=== PATIENT | male | born 1985 | race Caucasian/White ===

== ENCOUNTER 2020-06-12 14:55 | Inpatient (IN) | payer OTHER ==
--- NOTE | 2020-06-12 15:12 | BHS.RME ---
Substance Use & Tx History - Substance Use History Alcohol Substance amount: 1 liter vodka Frequency of use: Daily Substance route: Oral Date of Last Use: 06/12/20 (started age 31) Marijuana/Hashish Substance amount: 1 blunt Frequency of use: Daily Substance route: Smoking Date of Last Use: 06/12/20 (started age 12) Nicotine Substance amount: 1 pack Frequency of use: Daily Substance route: Smoking Date of Last Use: 06/12/20 (started age 16) Physical/Psych/Mental Status - Behavior General Behavior: Increased activity (restlessness, agitation) Eye Contact: Normal - Cooperativeness Cooperativeness: Cooperative, Hostile - Thinking Thought Processes: Tight, Logical, Goal Directed - Physical Health Problems Is patient presently having any pain?: No Does patient presently have any injuries (include location): No Does patient currently have a fever: No Is patient : No CIWA Nausea/Vomitin-Mild Nausea/No Vomiting Muscle Tremors: 2 Anxiety: 2 Agitation: 2 Paroxysmal Sweats: 2 Orientation: 1-Uncertain about Date Tacttile Disturbances: 0-None Auditory Disturbances: 0-None Visual Disturbances: 0-None Headache: 0-None Present (patient is intoxicated not yet in withdrawals) CIWA-Ar Total Score: 10
--- NOTE | 2020-06-12 15:38 | HP ---
CIWA Score Nausea/Vomitin-Mild Nausea/No Vomiting Muscle Tremors: 2 Anxiety: 2 Agitation: 2 Paroxysmal Sweats: 2 Orientation: 1-Uncertain about Date Tacttile Disturbances: 0-None Auditory Disturbances: 0-None Visual Disturbances: 0-None Headache: 0-None Present (patient is intoxicated not yet in withdrawals) CIWA-Ar Total Score: 10 - Admission Criteria OASAS Guidelines: Admission for Medically Managed Detox: Requires at least one of the followin. CIWA greater than 12 2. Seizures within the past 24 hours 3. Delirium tremens within the past 24 hours 4. Hallucinations within the past 24 hours 5. Acute intervention needed for co occurring medical disorder 6. Acute intervention needed for co occurring psychiatric disorder 7. Severe withdrawal that cannot be handled at a lower level of care (continued vomiting, continued diarrhea, abnormal vital signs) requiring intravenous medication and/or fluids 8. Admission ROS S - HPI Chief Complaint: I want to stop drinking. Allergies/Adverse Reactions: Allergies Allergy/AdvReac Type Severity Reaction Status Date / Time No Known Allergies Allergy Verified 06/12/20 15:40 History of Present Illness: 34 year old male with history of alcohol dependence with withdrawal. cannabis use disorder and nicotine dependence. - Substance Use History Alcohol Substance amount: 1 liter vodka Frequency of use: Daily Substance route: Oral Date of Last Use: 06/12/20 (started age 31) Patient admits to blackouts and last one 1 year ago, and also endorses the need for an eye brim curler Marijuana/Hashish Substance amount: 1 blunt Frequency of use: Daily Substance route: Smoking Date of Last Use: 06/12/20 (started age 12) Nicotine Substance amount: 1 pack Frequency of use: Daily Substance route: Smoking Date of Last Use: 06/12/20 (started age 16) Exam Limitations: No Limitations - Ebola screening Have you traveled outside of the country in the last 21 days: No Have you had contact with anyone from an Ebola affected area: No Have you been sick,other than usual withdrawal symptoms: No Do you have a fever: No - Review of Systems Constitutional: Chills, Diaphoresis, Unintentional Wgt. Loss EENT: reports: No Symptoms Reported Respiratory: reports: No Symptoms reported Cardiac: reports: No Symptoms Reported GI: reports: No Symptoms Reported : reports: No Symptoms Reported Musculoskeletal: reports: No Symptoms Reported Integumentary: reports: No Symptoms Reported Neuro: reports: No Symptoms reported Endocrine: reports: No Symptoms Reported Hematology: reports: No Symptoms Reported Psychiatric: reports: Judgement Intact, Mood/Affect Appropiate, Orientated x3, Agitated, Anxious, Depressed Other Systems: Reviewed and Negative Patient History - Patient Medical History Hx Anemia: No Hx Asthma: No Hx Chronic Obstructive Pulmonary Disease (COPD): No Hx Cancer: No Hx Cardiac Disorders: No Hx Congestive Heart Failure: No Hx Hypertension: No Hx Hypercholesterolemia: No Hx Pacemaker: No HX Cerebrovascular Accident: No Hx Seizures: No Hx Dementia: No Hx Diabetes: Yes Hx Gastrointestinal Disorders: No Hx Liver Disease: No Hx Genitourinary Disorders: No Hx Sexually Transmitted Disorders: No Hx Renal Disease (ESRD): No Hx Thyroid Disease: No Hx Human Immunodeficiency Virus (HIV): No Hx Hepatitis C: No Hx Depression: Yes Hx Suicide Attempt: No Hx Bipolar Disorder: No Hx Schizophrenia: No Other Medical History: anxiety - Patient Surgical History Past Surgical History: No - PPD History Previous Implant?: Yes Documented Results: Negative w/o proof Implanted On Prior [facility] Admission?: No PPD to be Administered?: Yes - Smoking Cessation Smoking history: Current every day smoker Have you smoked in the past 12 months: Yes Aproximately how many cigarettes per day: 20 Hx Chewing Tobacco Use: No Initiated information on smoking cessation: Yes 'Breaking Loose' booklet given: 06/12/20 - Substances abused Alcohol Substance route: Oral Frequency: Daily Amount used: 1 liter of vodka Age of first use: 31 Date of last use: 06/12/20 Marijuana/Hashish Substance route: Smoking Frequency: Daily Amount used: 1 blunt Age of first use: 12 Date of last use: 06/12/20 Admission Physical Exam BHS - Physical General Appearance: Yes: Moderate Distress, Intoxicated, Thin, Tremorous, Irritable, Sweating, Anxious HEENTM: Yes: EOMI, Hearing grossly Normal, Normal ENT Inspection, Normocephalic, Normal Voice, TANNER, Pharynx Normal, Tm's normal Respiratory: Yes: Chest Non-Tender, Lungs Clear, Normal Breath Sounds, No Respiratory Distress, No Accessory Muscle Use Neck: Yes: No masses,lesions,Nodules, Supple, Trachea in good position Breast: Yes: Within Normal Limits Cardiology: Yes: Regular Rhythm, S1, S2, Tachycardia Abdominal: Yes: Normal Bowel Sounds, Non Tender, Flat, Soft Genitourinary: Yes: Within Normal Limits Back: Yes: Normal Inspection Musculoskeletal: Yes: full range of Motion, Gait Steady, Pelvis Stable Extremities: Yes: Normal Capillary Refill, Normal Inspection, Normal Range of Motion, Non-Tender, Tremors 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: 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: 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 intact, Fully Oriented, Alert, Motor Strength 5/5, Normal Mood/Affect, Normal Response Integumentary: Yes: Normal Color, Dry, Warm Lymphatic: Yes: Within Normal Limits - Diagnostic (1) Alcohol dependence with intoxication Current Visit: Yes Status: Acute (2) Alcohol dependence with withdrawal Current Visit: Yes Status: Acute (3) Diabetes Current Visit: Yes Status: Acute (4) Anxiety Current Visit: Yes Status: Acute Cleared for Admission S - Detox or Rehab [facility] Level of Care: Medically Managed Detox Regimen/Protocol: Ativan Claeared for Rehab Admission: No Screened but not Admitted - Documentation of Visit Screened but not Admitted: No Breathalyzer - Breathalyzer Breathalyzer: 0.099 Vital Signs - Vital Signs Vital signs refused: No Temperature: 97.7 F Pulse Rate: 94 Respiratory Rate: 12 Blood Pressure: 116/69 BP Location: Right Arm Blood Pressure position: Sitting - Height Height: 5 ft 7 in - Weight Weight: 153 lb Weight measurement method: Standing scale - BMI Body Mass Index (BMI): 23.9 - Bowel Function Bowel Movement: No Urine Drug Screen - Results Drug screen NEGATIVE: No Urine drug screen results: THC-Marijuana, BZO-Benzodiazepines Inpatient Rehab Admission - Rehab Decision to Admit Inpatient rehab admission?: No
[2020-06-12] MEDS ORDERED: MAG HYDROX/AL HYDROX/SIMETH 30 ML UNIT-DOSE CUP ONE (15:40)
[2020-06-12] MEDS ORDERED: MAG HYDROX/AL HYDROX/SIMETH 30 ML UNIT-DOSE CUP PO ONE (15:40)
[2020-06-12 15:47] VITALS: BMI 23.9
[2020-06-12] MEDS ORDERED: BISMUTH SUBSALICYLATE 524 MG/30 ML UD PO PRN (15:47)
[2020-06-12] MEDS ORDERED: IBUPROFEN 400 MG TABLET (FP) PO PRN (15:47)
[2020-06-12] MEDS ORDERED: ACETAMINOPHEN 325 MG TABLET (FP) PO PRN ×2 (15:47)
[2020-06-12] MEDS ORDERED: LORazepam 1 MG TABLET PO PRN (15:47)
[2020-06-12] MEDS ORDERED: METHOCARBAMOL 500 MG TABLET PO PRN (15:47)
[2020-06-12] MEDS ORDERED: MAGNESIUM CITRATE 300 ML BOTTLE PO PRN (15:47)
[2020-06-12] MEDS ORDERED: MENTHOL/PHENOL 1 EACH UD MM PRN (15:47)
[2020-06-12] MEDS ORDERED: ONDANSETRON *ODT* 4 MG TABLET SL PRN (15:47)
[2020-06-12] MEDS ORDERED: MAGNESIUM HYDROX 2400MG/30ML ORAL SUSPENSION 30 ML CUP PO PRN (15:47)
[2020-06-12] MEDS ORDERED: MAG HYDROX/AL HYDROX/SIMETH 30 ML UNIT-DOSE CUP PO PRN (15:47)
[2020-06-12] MEDS: PRENATAL VITAMINS W/ FOLIC ACID TABLET (FP) PO SCH (18:00)
[2020-06-12] MEDS: LORazepam 2 MG TABLET PO SCH ×2 (18:00→22:50)
[2020-06-12] MEDS: NICOTINE 7 MG/24 HOURS TOPICAL PATCH TD SCH (18:00)
[2020-06-12] MEDS: hydrOXYzine PAMOATE 25 MG CAPSULE (FP) PO SCH ×2 (18:00→22:49)
[2020-06-12] MEDS: MELATONIN 5 MG TABLETS PO SCH (22:49)
[2020-06-12] MEDS: THIAMINE HCL 100 MG TABLET (FP) PO SCH (22:50)
[2020-06-13] MEDS: LORazepam 2 MG TABLET PO SCH ×4 (06:15→23:11)
[2020-06-13] MEDS: hydrOXYzine PAMOATE 25 MG CAPSULE (FP) PO SCH ×6 (06:16→23:10)
[2020-06-13] MEDS: NICOTINE 7 MG/24 HOURS TOPICAL PATCH TD SCH (10:16)
[2020-06-13] MEDS: PRENATAL VITAMINS W/ FOLIC ACID TABLET (FP) PO SCH (10:16)
[2020-06-13] MEDS: NICOTINE POLACRILEX 2 MG GUM BUC PRN ×2 (10:17→12:36)
[2020-06-13 10:26] LABS: HEMATOCRIT 41.7 % (35.4-49); HEMOGLOBIN 13.7 GM/dL (11.7-16.9); MCH 30.4 pg (25.7-33.7); MEAN CELL VOLUME 92.1 fl (80-96); MEAN PLT VOLUME 7.5 fl (7.5-11.1); PLATELET COUNT 238 K/MM3 (134-434); RBC 4.52 M/mm3 (4.00-5.60); RDW 13.3 % (11.9-15.9); WHITE BLOOD COUNT 7.5 K/mm3 (4.0-10.0)
--- NOTE | 2020-06-13 10:26 | EKG ---
Test Reason : Blood Pressure : / mmHG Vent. Rate : 090 BPM Atrial Rate : 090 BPM P-R Int : 148 ms QRS Dur : 090 ms QT Int : 370 ms P-R-T Axes : 050 008 043 degrees QTc Int : 452 ms NORMAL SINUS RHYTHM NON-SPECIFIC INTRA-VENTRICULAR CONDUCTION DELAY NO PREVIOUS ECGS AVAILABLE Confirmed by LOAN MONTOYA MD ([id number]) on 06/13/2020 10:26:11 AM Referred By: Confirmed By:LOAN MONTOYA MD
[2020-06-13 10:39] LABS: ALBUMIN 3.4 g/dl (3.4-5.0); BILIRUBIN,TOTAL 0.2 mg/dL (0.2-1); BLOOD UREA NITROGEN 9.2 mg/dL (7-18); CALCIUM 8.8 mg/dL (8.5-10.1); CREATININE 0.8 mg/dL (0.55-1.3); POTASSIUM 4.6 mmol/L (3.5-5.1); TOT PROT 6.3 g/dl (6.4-8.2)
[2020-06-13] MEDS ORDERED: Insulin (LOG) Aspart 100 UNITS/ML VIAL SQ ONE (11:27)
[2020-06-13] MEDS ORDERED: INSULIN SLIDING SCALE (NOVOLOG) 1 VIAL SQ ONE (11:37)
--- NOTE | 2020-06-13 11:52 | CONSULT ---
[facility] Psychiatric Consult - Data Date of interview: 06/13/20 Admission source: [facility] Identifying data: Patient is a 34 year old single male, father of one, unemployed, homeless, and is supported with [facility]. This is patient's first admission to detox at [facility]. Patient admitted to for alcohol and marijuana dependence. Substance Abuse History: Smoking Cessation. Smoking history: Current every day smoker. Have you smoked in the past 12 months: Yes. Aproximately how many cigarettes per day: 20. Hx Chewing Tobacco Use: No. Initiated information on smoking cessation: Yes. 'Breaking Loose' booklet given: 06/12/20. - Substances abused. Alcohol. Substance route: Oral. Frequency: Daily. Amount used: 1 liter of vodka. Age of first use: 31. Date of last use: 06/12/20. Marijuana/Hashish. Substance route: Smoking. Frequency: Daily. Amount used: 1 blunt. Age of first use: 12. Date of last use: 06/12/20 Medical History: diabetes. Psychiatric History: Interview conducted bedside. Patient reports history of one psychiatric hospitalization in 2019 in [place] due to suicidal ideation. Mr. López is unable to recall medications prescribed. Reports history of one suicide attempt as a teenager via cutting. Patient presents with a vague psychiatric history. Mr. López denies current outpatient psychiatric care. At present patient presents as moderately sedated but is reporting difficulty sleeping. Physical/Sexual Abuse/Trauma History: denies. Mental Status Exam - Mental Status Exam Alert and Oriented to: Time, Place, Person Cognitive Function: Good Patient Appearance: Well Groomed Mood: Withdrawn Affect: Mood Congruent Patient Behavior: Sedated (moderately sedated.), Fatigued Speech Pattern: Slurred (Patient moderately sedated.) Voice Loudness: Mildly Soft/Quiet Thought Process: Goal Oriented Thought Disorder: Not Present Hallucinations: Denies Suicidal Ideation: Denies Homicidal Ideation: Denies Insight/Judgement: Poor Sleep: Poorly Appetite: Fair Muscle strength/Tone: Normal Gait/Station: Other (Not observed.) Psychiatric Findings - Problem List ([place] 1, 2,3) (1) Marijuana dependence Current Visit: Yes Status: Acute (2) Alcohol dependence with withdrawal Current Visit: Yes Status: Acute (3) Substance induced mood disorder Current Visit: Yes Status: Acute (4) Substance-induced sleep disorder Current Visit: Yes Status: Acute - Initial Treatment Plan Initial Treatment Plan: Psychoeducation provided. Detoxification in progress. Will order Belsomra 10mg HS PRN. Benefits and side effects discussed. Verbal consent given.
--- NOTE | 2020-06-13 12:54 | PN ---
S CIWA - CIWA Score Nausea/Vomitin-No Nausea/No Vomiting Muscle Tremors: None Anxiety: 2 Agitation: 2 Paroxysmal Sweats: 2 Orientation: 0-Oriented Tacttile Disturbances: 0-None Auditory Disturbances: 0-None Visual Disturbances: 0-None Headache: 2-Mild CIWA-Ar Total Score: 8 S Progress Note (SOAP) Subjective: c/o anxiety, sweats, and irritability. Objective: 06/13/20 12:45 Vital Signs 06/13/20 05:52 Temperature 98.0 F Pulse Rate 76 Respiratory 18 Rate Blood Pressure 113/70 O2 Sat by Pulse 99 Oximetry (%) Laboratory Last Values WBC 7.5 K/mm3 (4.0-10.0) 06/13/20 07:35 RBC 4.52 M/mm3 (4.00-5.60) 06/13/20 07:35 Hgb 13.7 GM/dL (11.7-16.9) 06/13/20 07:35 Hct 41.7 % (35.4-49) 06/13/20 07:35 MCV 92.1 fl (80-96) 06/13/20 07:35 MCH 30.4 pg (25.7-33.7) 06/13/20 07:35 MCHC 33.0 g/dl (32.0-35.9) 06/13/20 07:35 RDW 13.3 % (11.9-15.9) 06/13/20 07:35 Plt Count 238 K/MM3 (134-434) 06/13/20 07:35 MPV 7.5 fl (7.5-11.1) 06/13/20 07:35 Sodium 132 mmol/L (136-145) L 06/13/20 07:35 Potassium 4.6 mmol/L (3.5-5.1) 06/13/20 07:35 Chloride 96 mmol/L (98-107) L 06/13/20 07:35 Carbon Dioxide 30 mmol/L (21-32) 06/13/20 07:35 Anion Gap 6 MMOL/L (8-16) L 06/13/20 07:35 BUN 9.2 mg/dL (7-18) 06/13/20 07:35 Creatinine 0.8 mg/dL (0.55-1.3) 06/13/20 07:35 Est GFR (CKD-EPI)AfAm 134.14 06/13/20 07:35 Est GFR (CKD-EPI)NonAf 115.74 06/13/20 07:35 POC Glucometer > 600 UNITS (80-120) 06/13/20 11:15 Random Glucose 509 mg/dL (74-106) H* 06/13/20 07:35 Calcium 8.8 mg/dL (8.5-10.1) 06/13/20 07:35 Total Bilirubin 0.2 mg/dL (0.2-1) 06/13/20 07:35 AST 16 U/L (15-37) 06/13/20 07:35 ALT 23 U/L (13-61) 06/13/20 07:35 Alkaline Phosphatase 100 U/L (45-117) 06/13/20 07:35 Total Protein 6.3 g/dl (6.4-8.2) L 06/13/20 07:35 Albumin 3.4 g/dl (3.4-5.0) 06/13/20 07:35 Labs noted with random glucose of 509mg/dl and BGM of >600. Assessment: 06/13/20 12:46 AOX3, in no acute respiratory distress. Full ROM, ambulating in the unit. Withdrawal symptoms. Hyperglycemia, pt denies any symptoms. 06/13/20 12:48 Plan: continue detox. Give novolog 15units SQ stat and start Novolog insulin sliding scale ACHS. Monitor BGM ACHS.
[2020-06-13] MEDS: INSULIN SLIDING SCALE (NOVOLOG) 1 VIAL SQ SCH ×2 (17:00→21:40)
[2020-06-13] MEDS ORDERED: SUVOREXANT 10 MG TABLET PO PRN (22:00)
[2020-06-13] MEDS: MELATONIN 5 MG TABLETS PO SCH (23:10)
[2020-06-13] MEDS: THIAMINE HCL 100 MG TABLET (FP) PO SCH (23:10)
[2020-06-14] MEDS ORDERED: LORazepam 1 MG TABLET PO SCH (05:00)
[2020-06-14] MEDS: hydrOXYzine PAMOATE 25 MG CAPSULE (FP) PO SCH (05:43)
[2020-06-14] MEDS: NICOTINE POLACRILEX 2 MG GUM BUC PRN (06:34)
[2020-06-14] MEDS: INSULIN SLIDING SCALE (NOVOLOG) 1 VIAL SQ SCH (06:41)
[2020-06-14] MEDS ORDERED: MASKS NR ONE (06:58)
[2020-06-14 07:19] VITALS: BP 116/77; PULSE 100; TEMP 98.2
--- NOTE | 2020-06-14 13:03 | DS ---
[facility] Detox Discharge Summary Admission Date: 06/12/20 Discharge Date: 06/14/20 (Pt left AMA) - History Present History: Alcohol Dependence Additional Comments: Pt left AMA. Pt did not complete the detox protocol. Pt states, "I have to leave now, this ain't helping me". An attempt to let pt stay and complete the detox protocol failed. Pt is verbally abusive to the staff since admission. Pt's blood glucose is high and is not compliant with treatment. Pt is encouraged to follow- up with an outpatient CD program and also to follow-up with his pmd but was adamant and states, " get the "F" out of my face, I "F" don't care". Pt is AOX3, in no acute respiratory distress, Full ROM, and ambulatory. Pertinent Past History: h/o DM, alcohol, and cannabis use disorder. - Physical Exam Results Vital Signs: Vital Signs Temperature 98.2 F 06/14/20 07:18 Pulse Rate 100 H 06/14/20 07:18 Respiratory Rate 18 06/14/20 07:18 Blood Pressure 116/77 06/14/20 07:18 O2 Sat by Pulse Oximetry (%) 98 06/14/20 07:18 Vital Signs 06/14/20 07:18 Temperature 98.2 F Pulse Rate 100 H Respiratory 18 Rate Blood Pressure 116/77 O2 Sat by Pulse 98 Oximetry (%) Laboratory Last Values WBC 7.5 K/mm3 (4.0-10.0) 06/13/20 07:35 RBC 4.52 M/mm3 (4.00-5.60) 06/13/20 07:35 Hgb 13.7 GM/dL (11.7-16.9) 06/13/20 07:35 Hct 41.7 % (35.4-49) 06/13/20 07:35 MCV 92.1 fl (80-96) 06/13/20 07:35 MCH 30.4 pg (25.7-33.7) 06/13/20 07:35 MCHC 33.0 g/dl (32.0-35.9) 06/13/20 07:35 RDW 13.3 % (11.9-15.9) 06/13/20 07:35 Plt Count 238 K/MM3 (134-434) 06/13/20 07:35 MPV 7.5 fl (7.5-11.1) 06/13/20 07:35 Sodium 132 mmol/L (136-145) L 06/13/20 07:35 Potassium 4.6 mmol/L (3.5-5.1) 06/13/20 07:35 Chloride 96 mmol/L (98-107) L 06/13/20 07:35 Carbon Dioxide 30 mmol/L (21-32) 06/13/20 07:35 Anion Gap 6 MMOL/L (8-16) L 06/13/20 07:35 BUN 9.2 mg/dL (7-18) 06/13/20 07:35 Creatinine 0.8 mg/dL (0.55-1.3) 06/13/20 07:35 Est GFR (CKD-EPI)AfAm 134.14 06/13/20 07:35 Est GFR (CKD-EPI)NonAf 115.74 06/13/20 07:35 POC Glucometer 568 UNITS (80-120) 06/14/20 05:42 Random Glucose 509 mg/dL (74-106) H* 06/13/20 07:35 Calcium 8.8 mg/dL (8.5-10.1) 06/13/20 07:35 Total Bilirubin 0.2 mg/dL (0.2-1) 06/13/20 07:35 AST 16 U/L (15-37) 06/13/20 07:35 ALT 23 U/L (13-61) 06/13/20 07:35 Alkaline Phosphatase 100 U/L (45-117) 06/13/20 07:35 Total Protein 6.3 g/dl (6.4-8.2) L 06/13/20 07:35 Albumin 3.4 g/dl (3.4-5.0) 06/13/20 07:35 Syphilis Serology Non-reactive (NONREACTIVE) 06/13/20 07:35 COVID-19 (NOA) Not detected (Not Detected) 06/12/20 15:10 Labs noted. Pertinent Admission Physical Exam Findings: withdrawal symptoms. - Treatment Hospital Course: Detox Protocol Followed - Medication Discharge Medications: Ambulatory Orders Insulin (Novolog) [Novolog] 30 units SQ BID 06/12/20 - Diagnosis (1) Alcohol dependence with withdrawal Status: Acute (2) Diabetes Status: Chronic (3) Marijuana dependence Status: Chronic - AMA Did Patient Leave Against Medical Advice: Yes
[2020-06-15] MEDS ORDERED: LORazepam 0.5 MG TABLET PO PRN
[2020-06-15] MEDS ORDERED: LORazepam 0.5 MG TABLET PO SCH (05:00)
[2020-06-16] MEDS ORDERED: LORazepam 0.5 MG TABLET PO ONE (05:00)
== END 2020-06-14 09:10 | disposition left against medical advice (07) | DRG 770 ==
LOC: YASAS 14:55 → Y3N 16:53
PROVIDERS: ADMIT Allergy & Immunology; ATTEND Allergy & Immunology
PROC: HZ2ZZZZ Detoxification Services for Substance Abuse Treatment (ICD-10-PCS; principal; 2020-06-12)
DX: F10.230 Alcohol dependence with withdrawal, uncomplicated (principal); F10.220 Alcohol dependence with intoxication, uncomplicated; F12.20 Cannabis dependence, uncomplicated; F17.210 Nicotine dependence, cigarettes, uncomplicated; F19.282 Other psychoactive substance dependence with psychoactive substance-induced sleep disorder; F19.24 Other psychoactive substance dependence with psychoactive substance-induced mood disorder; F32.9 Major depressive disorder, single episode, unspecified; E11.65 Type 2 diabetes mellitus with hyperglycemia; Z79.4 Long term (current) use of insulin; Z56.0 Unemployment, unspecified; Z59.0 Homelessness
CPT/HCPCS: 36415; 80053; 82962; 85027; 86780; 93005; 93010; U0003

== ENCOUNTER 2023-05-05 12:40 | Inpatient (IN) | payer OTHER ==
[2023-05-05 13:52] VITALS: BMI 22.5
[2023-05-05] MEDS ORDERED: ACETAMINOPHEN 325 MG TABLET (FP) PO PRN (14:36)
[2023-05-05] MEDS ORDERED: METHOCARBAMOL 500 MG TABLET PO PRN (14:36)
[2023-05-05] MEDS ORDERED: ONDANSETRON *ODT* 4 MG TABLET SL PRN (14:36)
[2023-05-05] MEDS ORDERED: MAG HYDROX/AL HYDROX/SIMETH 30 ML UNIT-DOSE CUP PO PRN (14:36)
[2023-05-05] MEDS ORDERED: BISMUTH SUBSALICYLATE 524 MG/30 ML PO PRN (14:36)
[2023-05-05] MEDS ORDERED: BENZONATATE 200 MG CAPSULE PO PRN (14:36)
[2023-05-05] MEDS ORDERED: NALOXONE HCL (KLOXXADO) 8 MG SPRAY NS PRN (14:36)
[2023-05-05] MEDS ORDERED: POLYETHYLENE GLYCOL (HEALTHYLAX) 3350 17 GM PACKET PO PRN (14:36)
[2023-05-05] MEDS ORDERED: DICYCLOMINE HCL 10 MG CAPSULE PO PRN (14:36)
[2023-05-05] MEDS ORDERED: IBUPROFEN 600 MG TABLET (FP) PO PRN (14:36)
[2023-05-05] MEDS ORDERED: IBUPROFEN 400 MG TABLET (FP) PO PRN (14:36)
[2023-05-05] MEDS ORDERED: NALOXONE HCL 0.4 MG/ML VIAL IM PRN (14:36)
[2023-05-05] MEDS ORDERED: MAGNESIUM HYDROX 2400MG/30ML ORAL SUSPENSION 30 ML CUP PO PRN (14:36)
[2023-05-05] MEDS ORDERED: guaiFENesin 600 MG TABLET.ER (FP) PO PRN (14:36)
[2023-05-05] MEDS ORDERED: hydrOXYzine PAMOATE 25 MG CAPSULE (FP) PO PRN (14:36)
[2023-05-05] MEDS ORDERED: BENZOCAINE/MENTHOL (CHLORASEPTIC ) LOZENGE MM PRN (14:36)
[2023-05-05] MEDS ORDERED: LOPERAMIDE HCL 2 MG CAPSULE PO PRN (14:36)
[2023-05-05] MEDS: NICOTINE 7 MG/24 HOURS TOPICAL PATCH TD SCH (16:05)
[2023-05-05] MEDS ORDERED: INSULIN (NOVOLOG) ASPART 100 UNITS/ML 10ML VIAL SQ SCH (16:30)
[2023-05-05] MEDS: PRENATAL VITAMINS W/ FOLIC ACID TABLET (FP) PO SCH (16:45)
[2023-05-05] MEDS ORDERED: NICOTINE 7 MG/24 HOURS TOPICAL PATCH TD ONE (16:52)
[2023-05-05] MEDS ORDERED: PRENATAL VITAMINS W/ FOLIC ACID TABLET (FP) PO ONE (16:52)
[2023-05-05] MEDS ORDERED: INSULIN (NOVOLOG) ASPART 100 UNITS/ML 10ML VIAL ONE (17:02)
[2023-05-05 17:24] VITALS: TEMP 97.8
[2023-05-05] MEDS: chlordiazePOXIDE HCL 25 MG CAPSULE PO SCH ×2 (18:00→23:02)
[2023-05-05] MEDS: chlordiazePOXIDE HCL 25 MG CAPSULE PO PRN (18:23)
[2023-05-05] MEDS ORDERED: THIAMINE HCL 100 MG TABLET (FP) PO SCH (22:00)
[2023-05-05] MEDS ORDERED: MELATONIN 5 MG TABLETS PO SCH (22:00)
[2023-05-06] MEDS: chlordiazePOXIDE HCL 25 MG CAPSULE PO SCH ×2 (05:55→10:13)
[2023-05-06 06:20] VITALS: BP 121/74; PULSE 74; RESP 16
[2023-05-06] MEDS: INSULIN SLIDING SCALE (NOVOLOG) 1 VIAL SQ SCH ×2 (07:49→11:45)
[2023-05-06] MEDS: PRENATAL VITAMINS W/ FOLIC ACID TABLET (FP) PO SCH (10:13)
[2023-05-06] MEDS: NICOTINE 7 MG/24 HOURS TOPICAL PATCH TD SCH (10:15)
[2023-05-06 11:02] LABS: HEMATOCRIT 46.6 % (35.4-49); HEMOGLOBIN 15.2 GM/dL (11.7-16.9); MCH 30.2 pg (25.7-33.7); MCHC 32.6 g/dl (32.0-35.9); MEAN CELL VOLUME 92.7 fl (80-96); MEAN PLT VOLUME 8.2 fl (7.5-11.1); PLATELET COUNT 300 10^3/uL (134-434); RBC 5.03 M/mm3 (4.00-5.60); RDW 13.1 % (11.9-15.9); WHITE BLOOD COUNT 5.6 K/mm3 (4.0-10.0)
[2023-05-06 11:04] LABS: CHLORIDE 101 mmol/L (98-107); POTASSIUM 4.3 mmol/L (3.5-5.1); SODIUM 139 mmol/L (136-145)
[2023-05-06 11:52] LABS: ALBUMIN 3.6 g/dl (3.4-5.0); BLOOD UREA NITROGEN 13.5 mg/dL (7-18); CALCIUM 9.6 mg/dL (8.5-10.1); CO2 30 mmol/L (21-32)
[2023-05-06 11:54] LABS: CREATININE 0.8 mg/dL (0.55-1.3); SGOT/AST 21 U/L (15-37); SGPT/ALT 46 U/L (13-61)
[2023-05-06] MEDS ORDERED: INSULIN (NOVOLOG) ASPART 100 UNITS/ML 10ML VIAL ONE (11:54)
[2023-05-06 11:56] LABS: BILIRUBIN,TOTAL 0.2 mg/dL (0.2-1); TOT PROT 6.9 g/dl (6.4-8.2)
[2023-05-06 11:58] LABS: ALK PHOS 121 U/L (45-117); ANION GAP 8 MMOL/L (8-16); GLUCOSE,RANDOM 445 mg/dL (74-106)
[2023-05-06] MEDS ORDERED: INSULIN (NOVOLOG) ASPART 100 UNITS/ML 10ML VIAL SQ ONE (13:30)
[2023-05-06] MEDS: chlordiazePOXIDE HCL 25 MG CAPSULE PO PRN (14:11)
[2023-05-06] MEDS ORDERED: INSULIN (LEVEMIR) 100 UNITS/ML UNITS SQ SCH (22:00)
[2023-05-07] MEDS ORDERED: chlordiazePOXIDE HCL 25 MG CAPSULE PO SCH (05:00)
[2023-05-08] MEDS ORDERED: chlordiazePOXIDE HCL 10 MG CAPSULE PO PRN
[2023-05-08] MEDS ORDERED: chlordiazePOXIDE HCL 10 MG CAPSULE PO SCH (05:00)
[2023-05-09] MEDS ORDERED: chlordiazePOXIDE HCL 10 MG CAPSULE PO SCH (05:00)
[2023-05-10] MEDS ORDERED: chlordiazePOXIDE HCL 10 MG CAPSULE PO ONE (05:00)
== END 2023-05-06 17:30 | disposition left against medical advice (07) | DRG 770 ==
LOC: YASAS 12:40 → Y6N 16:56
PROVIDERS: ADMIT Allergy & Immunology; ATTEND Surgery
PROC: HZ2ZZZZ Detoxification Services for Substance Abuse Treatment (ICD-10-PCS; principal; 2023-05-05)
DX: F10.230 Alcohol dependence with withdrawal, uncomplicated (principal); F12.20 Cannabis dependence, uncomplicated; F17.210 Nicotine dependence, cigarettes, uncomplicated; F20.9 Schizophrenia, unspecified; F19.282 Other psychoactive substance dependence with psychoactive substance-induced sleep disorder; F19.24 Other psychoactive substance dependence with psychoactive substance-induced mood disorder; F41.9 Anxiety disorder, unspecified; E11.9 Type 2 diabetes mellitus without complications; Z79.4 Long term (current) use of insulin; Z59.02 Unsheltered homelessness
CPT/HCPCS: 36415; 80053; 82962; 85027; 86780; 87635; 87811; 93005; 93010

== ENCOUNTER 2024-09-21 16:07 | Inpatient (IN) | payer OTHER ==
[2024-09-21 16:30] VITALS: RESP 18; BMI 25.8
[2024-09-21] MEDS ORDERED: NICOTINE 7 MG/24 HOURS TOPICAL PATCH TD ONE (17:57)
[2024-09-21 18:03] LABS: VENOUS BASE EXCESS 3.6 mmol/L (-2-2); VENOUS O2 SATURATION 19.2 % (70-80); VENOUS PCO2 60.2 mmHg (38-52); VENOUS PH 7.335 (7.310-7.410)
[2024-09-21] MEDS: NICOTINE 7 MG/24 HOURS TOPICAL PATCH TD ONE (18:08)
[2024-09-21] MEDS: SODIUM CHLORIDE 0.9% 500 ML INFUS.BAG IV ONE ×2 (18:08→19:11)
[2024-09-21 18:13] LABS: BASO % 0.4 % (0-2.0); HEMATOCRIT 42.6 % (35.4-49); HEMOGLOBIN 14.2 GM/dL (11.7-16.9); MCH 29.9 pg (25.7-33.7); MCHC 33.4 g/dl (32.0-35.9); MEAN CELL VOLUME 89.5 fl (80-96); MEAN PLT VOLUME 7.9 fl (7.5-11.1); MONO % 5.3 % (3.8-10.2); NEUT % 82.3 % (42.8-82.8); PLATELET COUNT 225 10^3/uL (134-434); RBC 4.76 M/mm3 (4.00-5.60); RDW 13.8 % (11.9-15.9)
[2024-09-21 18:16] LABS: PH,URINE 7.5 (5.0-8.0); URINE APPEARANCE CLEAR; URINE BILIRUBIN NEGATIVE (NEGATIVE); URINE COLOR YELLOW; URINE GLUCOSE (UA) 3+ (NEGATIVE); URINE KETONE NEGATIVE (NEGATIVE); URINE LEUK ESTERASE NEGATIVE (NEGATIVE); URINE NITRITE NEGATIVE (NEGATIVE); URINE PROTEIN NEGATIVE (NEGATIVE); URINE UROBILINOGEN 0.2 mg/dL (0.2-1.0)
[2024-09-21 18:17] LABS: URINE RBC 30.3 /uL (0-23.9)
[2024-09-21 18:18] LABS: EPI CELLS 0.8 /uL (0-25.1); HYALINE CASTS 0.13 /uL (0-3.1)
[2024-09-21 18:26] LABS: CHLORIDE 84 mmol/L (98-107); POTASSIUM 4.7 mmol/L (3.5-5.1); SODIUM 122 mmol/L (136-145)
[2024-09-21 18:29] LABS: ALBUMIN 3.3 g/dl (3.4-5.0); ANION GAP 4 mmol/L (4-13); BLOOD UREA NITROGEN 24.1 mg/dL (7-18); CO2 34 mmol/L (21-32); MAGNESIUM 2.3 mg/dL (1.8-2.4)
[2024-09-21 18:32] LABS: CREATININE 1.2 mg/dL (0.55-1.3); PHOSPHOROUS 4.2 mg/dL (2.5-4.9); SGOT/AST 21 U/L (15-37)
[2024-09-21 18:33] LABS: BILIRUBIN,TOTAL 0.2 mg/dL (0.2-1)
[2024-09-21 18:35] LABS: ALK PHOS 100 U/L (45-117)
[2024-09-21 18:43] LABS: GLUCOSE,RANDOM 956 mg/dL (74-106); SGPT/ALT 42 U/L (13-61); TOT PROT 6.6 g/dl (6.4-8.2)
[2024-09-21] MEDS: INSULIN (NOVOLOG) ASPART 100 UNITS/ML 10ML VIAL SQ ONE (18:57)
[2024-09-21] MEDS ORDERED: INSULIN REGULAR HUMAN 100 UNITS/ML *VIAL ONE (19:31)
[2024-09-21] MEDS: INSULIN REGULAR HUMAN 100 UNITS/ML *VIAL IVPUSH ONE (19:36)
[2024-09-21] MEDS ORDERED: chlordiazePOXIDE HCL 25 MG CAPSULE ONE (21:03)
[2024-09-21] MEDS: chlordiazePOXIDE HCL 25 MG CAPSULE PO ONE (21:13)
[2024-09-21] MEDS: INSULIN ASPART SLIDING SCALE (NOVOLOG) 1 VIAL SQ SCH (21:36)
[2024-09-21] MEDS ORDERED: chlordiazePOXIDE HCL 25 MG CAPSULE PO PRN (21:43)
[2024-09-21] MEDS: INSULIN (LEVEMIR) 100 UNITS/ML UNITS SQ SCH (23:05)
[2024-09-21] MEDS: KCL 10 MEQ IVPB 10 MEQ/100 ML INFUS.BAG IVPB SCH (23:05)
[2024-09-21] MEDS: chlordiazePOXIDE HCL 25 MG CAPSULE PO SCH (23:20)
[2024-09-22] MEDS: POTASSIUM CHLORIDE ORAL LIQUID 20 MEQ/15 ML PO ONE (00:03)
[2024-09-22] MEDS: ACETAMINOPHEN 1000 MG/100 ML BAG IVPB ONE (00:03)
[2024-09-22] MEDS: hydrOXYzine PAMOATE 25 MG CAPSULE (FP) PO ONE (00:05)
[2024-09-22 00:53] VITALS: BP 117/84; PULSE 83; TEMP 97.7
[2024-09-22] MEDS: FOLIC ACID INJECTION - 1 MG, THIAMINE HCL 100 MG, MULTIVIT INJECTION ADULT 10 ML in SOD... IVPB ONE (03:04)
[2024-09-22 09:51] LABS: BASO % 0.5 % (0-2.0); EOS % 3.7 % (0-4.5); HEMATOCRIT 36.9 % (35.4-49); HEMOGLOBIN 12.6 GM/dL (11.7-16.9); LYMPH % 37.4 % (8-40); MCHC 34.1 g/dl (32.0-35.9); MEAN CELL VOLUME 87.9 fl (80-96); MEAN PLT VOLUME 7.6 fl (7.5-11.1); MONO % 6.1 % (3.8-10.2); NEUT % 52.3 % (42.8-82.8); PLATELET COUNT 202 10^3/uL (134-434); WHITE BLOOD COUNT 6.5 K/mm3 (4.0-10.0)
[2024-09-22] MEDS: ENOXAPARIN NA (PORCINE) 40 MG/0.4 ML DISP.SYRIN SQ SCH (10:23)
[2024-09-22] MEDS: FOLIC ACID 1 MG TABLET (FP) PO SCH (10:23)
[2024-09-22] MEDS: THIAMINE 100 MG TABLET PO SCH (10:24)
[2024-09-22] MEDS: NICOTINE 14 MG/24 HOURS TOPICAL PATCH TD SCH (10:25)
[2024-09-22 10:37] LABS: POTASSIUM 4.2 mmol/L (3.5-5.1)
[2024-09-22 10:57] LABS: CALCIUM 8.5 mg/dL (8.5-10.1)
[2024-09-22 10:58] LABS: BLOOD UREA NITROGEN 16.7 mg/dL (7-18)
[2024-09-22 11:01] LABS: CREATININE 0.6 mg/dL (0.55-1.3); PHOSPHOROUS 3.4 mg/dL (2.5-4.9)
[2024-09-22 11:02] LABS: BILIRUBIN,TOTAL 0.2 mg/dL (0.2-1); TOT PROT 5.2 g/dl (6.4-8.2)
[2024-09-22 11:04] LABS: ALBUMIN 2.6 g/dl (3.4-5.0)
[2024-09-23] MEDS ORDERED: chlordiazePOXIDE HCL 25 MG CAPSULE PO SCH (05:00)
[2024-09-24] MEDS ORDERED: chlordiazePOXIDE HCL 10 MG CAPSULE PO PRN
[2024-09-24] MEDS ORDERED: chlordiazePOXIDE HCL 10 MG CAPSULE PO SCH (05:00)
[2024-09-25] MEDS ORDERED: chlordiazePOXIDE HCL 10 MG CAPSULE PO SCH (05:00)
[2024-09-26] MEDS ORDERED: chlordiazePOXIDE HCL 10 MG CAPSULE PO ONE (05:00)
== END 2024-09-22 11:51 | disposition left against medical advice (07) | DRG 770 ==
LOC: JER 16:07 → JERBED 19:38 → J7W 22:37
PROVIDERS: ADMIT Internal Medicine
DX: F10.239 Alcohol dependence with withdrawal, unspecified (principal); E11.65 Type 2 diabetes mellitus with hyperglycemia; F20.0 Paranoid schizophrenia; F41.9 Anxiety disorder, unspecified; F17.210 Nicotine dependence, cigarettes, uncomplicated; F12.20 Cannabis dependence, uncomplicated; Z59.00 Homelessness unspecified
CPT/HCPCS: 36415; 71046-TC-FY; 80053; 81003; 82010; 82803; 82962; 83036; 83605; 83735; 84100; 85025; 87086; 93005; 93010; 99285-25; J0131

== ENCOUNTER 2024-09-24 17:29 | Inpatient (IN) | payer OTHER ==
[2024-09-24 18:05] VITALS: BMI 26.6
[2024-09-24] MEDS ORDERED: MAG HYDROX/AL HYDROX/SIMETH 30 ML UNIT-DOSE CUP PO PRN (18:25)
[2024-09-24] MEDS ORDERED: IBUPROFEN 400 MG TABLET (FP) PO PRN (18:25)
[2024-09-24] MEDS ORDERED: LOPERAMIDE HCL 2 MG CAPSULE PO PRN (18:25)
[2024-09-24] MEDS ORDERED: ACETAMINOPHEN 325 MG TABLET (FP) PO PRN (18:25)
[2024-09-24] MEDS ORDERED: DICYCLOMINE HCL 10 MG CAPSULE PO PRN (18:25)
[2024-09-24] MEDS ORDERED: NALOXONE (NARCAN) HCL 4 MG/0.1 ML SPRAY NS PRN (18:25)
[2024-09-24] MEDS ORDERED: MAGNESIUM HYDROX 2400MG/30ML ORAL SUSPENSION 30 ML CUP PO PRN (18:25)
[2024-09-24] MEDS ORDERED: BISMUTH SUBSALICYLATE 524 MG/30 ML PO PRN (18:25)
[2024-09-24] MEDS ORDERED: POLYETHYLENE GLYCOL (HEALTHYLAX) 3350 17 GM PACKET PO PRN (18:25)
[2024-09-24] MEDS ORDERED: hydrOXYzine PAMOATE 25 MG CAPSULE (FP) PO PRN (18:25)
[2024-09-24] MEDS ORDERED: ONDANSETRON *ODT* 4 MG TABLET SL PRN (18:25)
[2024-09-24] MEDS ORDERED: BENZOCAINE/MENTHOL (CHLORASEPTIC ) LOZENGE MM PRN (18:25)
[2024-09-24] MEDS ORDERED: guaiFENesin 600 MG TABLET.ER (FP) PO PRN (18:25)
[2024-09-24] MEDS ORDERED: BENZONATATE 200 MG CAPSULE PO PRN (18:25)
[2024-09-24] MEDS ORDERED: cloNIDine HCL 0.1 MG TABLET ONE (18:56)
[2024-09-24] MEDS: cloNIDine HCL 0.1 MG TABLET PO ONE (18:57)
[2024-09-24] MEDS: INSULIN (NOVOLOG) ASPART 100 UNITS/ML 10ML VIAL SQ ONE (19:00)
[2024-09-24] MEDS: diazePAM 5 MG TABLET PO PRN (20:23)
[2024-09-24] MEDS: MELATONIN 5 MG TABLETS PO SCH (22:23)
[2024-09-24] MEDS: THIAMINE 100 MG TABLET PO SCH (22:23)
[2024-09-24] MEDS: INSULIN ASPART SLIDING SCALE (NOVOLOG) 1 VIAL SQ SCH (22:37)
[2024-09-24] MEDS: diazePAM 5 MG TABLET PO SCH (23:22)
[2024-09-25] MEDS: PRENATAL VITAMINS W/ FOLIC ACID TABLET (FP) PO SCH (10:05)
[2024-09-25] MEDS: NICOTINE POLACRILEX 4 MG GUM BUC PRN (10:08)
[2024-09-25] MEDS: INSULIN (LEVEMIR) 100 UNITS/ML UNITS SQ SCH (10:11)
[2024-09-25] MEDS: IBUPROFEN 600 MG TABLET (FP) PO PRN (18:08)
[2024-09-25] MEDS: METHOCARBAMOL 500 MG TABLET PO PRN (18:09)
[2024-09-26 05:53] VITALS: BP 152/89; PULSE 78; RESP 16; TEMP 98
[2024-09-26] MEDS: diazePAM 5 MG TABLET PO SCH (06:20)
[2024-09-27] MEDS ORDERED: diazePAM 5 MG TABLET PO SCH (06:00)
[2024-09-28] MEDS ORDERED: diazePAM 5 MG TABLET PO ONE (06:00)
== END 2024-09-26 09:44 | disposition left against medical advice (07) | DRG 770 ==
LOC: YASAS 17:29 → Y3N 19:45
PROVIDERS: ADMIT Allergy & Immunology; ATTEND Allergy & Immunology
PROC: HZ2ZZZZ Detoxification Services for Substance Abuse Treatment (ICD-10-PCS; principal; 2024-09-24)
DX: F10.230 Alcohol dependence with withdrawal, uncomplicated (principal); F13.20 Sedative, hypnotic or anxiolytic dependence, uncomplicated; F17.210 Nicotine dependence, cigarettes, uncomplicated; F31.9 Bipolar disorder, unspecified; F41.9 Anxiety disorder, unspecified; E11.59 Type 2 diabetes mellitus with other circulatory complications; Z79.4 Long term (current) use of insulin
CPT/HCPCS: 80305; 80307; 82962; 93005; 93010